=== PATIENT | female | born 2000 | race Caucasian/White ===

== ENCOUNTER → 2020-07-23 | Outpatient (CLI) | payer BC ==
[~2020-07-23] MED LIST: CULTURELLE CAP1 EACH PO; LEVSIN0.125 MG PO; OMEPRAZOLE40 MG PO
== END ==
LOC: US 07:17
PROVIDERS: ATTEND Internal Medicine Gastroenterology
DX: R10.31 Right lower quadrant pain (principal)
CPT/HCPCS: 76700